=== PATIENT | male | born 1960 | race Caucasian/White ===

== ENCOUNTER 2020-08-14 18:54 | Observation (INO) ==
[2020-08-14] MEDS ORDERED: Albuterol 2.5 MG/3 ML NEBULIZER IH ONE (20:13)
[2020-08-14 20:53] LABS: Basophils # 0.1 K/mcL (0.0-0.2); Basophils % 0.6 %; Eosinophils # 0.3 K/mcL (0.0-0.6); Eosinophils % 2.1 %; Hematocrit 47.7 % (37.5-50.1); Hemoglobin 14.9 g/dL (12.9-16.9); Immature Granulocytes % 0.6 % (0-4); Lymphocytes # 2.5 K/mcL (0.6-4.6); Lymphocytes % 17.8 %; Mean Corpuscular HGB Conc 31.2 g/dL (31.6-35.5); Mean Corpuscular Hemoglobin 28.5 pg (28.0-33.3); Mean Corpuscular Volume 91.4 fL (83.0-100.0); Mean Platelet Volume 10.4 fL (9.4-12.4); Monocytes # 1.3 K/mcL (0.0-1.3); Monocytes % 9.3 %; Neutrophils # 9.9 K/mcL (1.6-8.9); Platelet Count 217 K/mcL (140-400); Red Blood Count 5.22 M/mcL (4.19-5.50); Red Cell Distribution Width 13.3 % (11.5-14.5); Segmented Neutrophils % 69.6 %; White Blood Count 14.2 K/mcL (4.3-11.1)
[2020-08-14 21:16] LABS: BUN/Creatinine Ratio 10 (6-26); Blood Urea Nitrogen 11 mg/dL (8-23); Calcium 8.9 mg/dL (8.6-10.3); Carbon Dioxide 26 mEq/L (23-29); Chloride 103 mEq/L (98-107); Glucose 113 mg/dL (70-105); Osmolality,Calculated 284 (280-300); Potassium 3.8 mEq/L (3.5-5.1); Sodium 137 mEq/L (136-145); eGFR For African Americans > 60 (> 60); eGFR For Non-African Americans > 60 (> 60)
[2020-08-14] MEDS ORDERED: levoFLOXacin 500 MG/100 ML 500 MG/100 ML BAG IVPB ONE (21:39)
[2020-08-14] MEDS ORDERED: Acetaminophen 325 MG TABLET PO PRN (22:39)
[2020-08-14] MEDS ORDERED: Ondansetron 4 MG/2 ML VIAL IVP PRN (22:39)
[2020-08-14] MEDS ORDERED: Naloxone 0.4 MG/ML INJ IVP PRN (22:39)
[2020-08-15] MEDS: Albuterol 2.5 MG/3 ML NEBULIZER IH PRN ×3 (06:27→21:51)
[2020-08-15] MEDS ORDERED: Dextrose Gel 15 GM/37.5 ML TUBE PO PRN ×2 (06:54)
[2020-08-15] MEDS ORDERED: *HR* Dextrose 50 % in Water (Vial) 50 ML VIAL IVP PRN (06:54)
[2020-08-15] MEDS ORDERED: D5% in Water 1,000 ML IVC PRN (06:54)
[2020-08-15 06:55] LABS: Hematocrit 48.2 % (37.5-50.1); Hemoglobin 15.2 g/dL (12.9-16.9); Mean Corpuscular HGB Conc 31.5 g/dL (31.6-35.5); Mean Corpuscular Hemoglobin 28.8 pg (28.0-33.3); Mean Corpuscular Volume 91.5 fL (83.0-100.0); Mean Platelet Volume 10.5 fL (9.4-12.4); Platelet Count 223 K/mcL (140-400); Red Blood Count 5.27 M/mcL (4.19-5.50); Red Cell Distribution Width 13.5 % (11.5-14.5); White Blood Count 11.6 K/mcL (4.3-11.1)
[2020-08-15 07:33] LABS: BUN/Creatinine Ratio 16 (6-26); Blood Urea Nitrogen 18 mg/dL (8-23); Calcium 8.7 mg/dL (8.6-10.3); Carbon Dioxide 24 mEq/L (23-29); Chloride 103 mEq/L (98-107); Glucose 136 mg/dL (70-105); Magnesium 1.9 mg/dL (1.6-2.6); Osmolality,Calculated 286 (280-300); Phosphorous 4.4 mg/dL (2.7-4.5); Potassium 4.1 mEq/L (3.5-5.1); Sodium 136 mEq/L (136-145); eGFR For African Americans > 60 (> 60); eGFR For Non-African Americans > 60 (> 60)
[2020-08-15] MEDS: Insulin LISPRO 300 UNITS/3 ML VIAL SQ SCH ×4 (08:58→20:56)
[2020-08-15] MEDS ORDERED: Vancomycin 2,000 MG/520 ML IV.SOLN IVPB ONE (10:00)
[2020-08-15] MEDS: Cefepime HCl 2,000 MG in Water for inj. (sterile) 20 ML IVP SCH ×2 (11:31→21:09)
[2020-08-15] MEDS: *HR* Heparin 5,000 UNIT/ML VIAL SQ SCH (18:06)
[2020-08-15] MEDS: Vancomycin 1,500 MG/265 ML IV.SOLN IVPB SCH (23:56)
[2020-08-16] MEDS: *HR* Heparin 5,000 UNIT/ML VIAL SQ SCH ×2 (05:03→16:03)
[2020-08-16 06:01] LABS: Hematocrit 46.7 % (37.5-50.1); Hemoglobin 14.4 g/dL (12.9-16.9); Mean Corpuscular HGB Conc 30.8 g/dL (31.6-35.5); Mean Corpuscular Hemoglobin 28.5 pg (28.0-33.3); Mean Corpuscular Volume 92.3 fL (83.0-100.0); Mean Platelet Volume 10.3 fL (9.4-12.4); Platelet Count 214 K/mcL (140-400); Red Blood Count 5.06 M/mcL (4.19-5.50); Red Cell Distribution Width 13.3 % (11.5-14.5); White Blood Count 9.1 K/mcL (4.3-11.1)
[2020-08-16] MEDS: Insulin LISPRO 300 UNITS/3 ML VIAL SQ SCH ×4 (07:30→21:52)
[2020-08-16] MEDS ORDERED: Fluticasone Propionate Nasal 50 MCG/SPRAY BOTTLE NS PRN (09:10)
[2020-08-16] MEDS: Cefepime HCl 2,000 MG in Water for inj. (sterile) 20 ML IVP SCH (10:24)
[2020-08-16] MEDS: FLUoxetine 20 MG CAPSULE PO SCH (10:24)
[2020-08-16] MEDS: Cholecalciferol (D-3) 1,000 UNIT (25MCG) TABLET PO SCH (10:25)
[2020-08-16] MEDS: lisinopriL 20 MG TABLET PO SCH (10:25)
[2020-08-16] MEDS: Aspirin Enteric Coated 81 MG Tablet PO SCH (10:25)
[2020-08-16] MEDS: Furosemide 40 MG TABLET PO SCH (10:25)
[2020-08-16] MEDS: carvediloL 6.25 MG TABLET PO SCH ×2 (10:25→16:03)
[2020-08-16] MEDS: Ipratropium/Albuterol Neb 3 ML IH SCH ×4 (11:15→23:35)
[2020-08-16] MEDS: Budesonide/Formoterol 160/4.5 1 PUFF INH IH SCH ×2 (11:15→20:02)
[2020-08-16] MEDS: Vancomycin 1,500 MG/265 ML IV.SOLN IVPB SCH ×2 (16:04→22:46)
[2020-08-16] MEDS ORDERED: carvediloL 6.25 MG TABLET PO SCH (17:00)
[2020-08-16] MEDS: GuaiFENesin Liq 200 MG/10 ML UDC PO SCH (22:46)
[2020-08-17] MEDS: Ipratropium/Albuterol Neb 3 ML IH SCH ×3 (03:41→11:12)
[2020-08-17 05:35] LABS: Hematocrit 45.1 % (37.5-50.1); Hemoglobin 13.6 g/dL (12.9-16.9); Mean Corpuscular HGB Conc 30.2 g/dL (31.6-35.5); Mean Corpuscular Hemoglobin 27.7 pg (28.0-33.3); Mean Corpuscular Volume 91.9 fL (83.0-100.0); Mean Platelet Volume 10.4 fL (9.4-12.4); Platelet Count 213 K/mcL (140-400); Red Blood Count 4.91 M/mcL (4.19-5.50); Red Cell Distribution Width 13.2 % (11.5-14.5); White Blood Count 8.3 K/mcL (4.3-11.1)
[2020-08-17 05:47] LABS: BUN/Creatinine Ratio 19 (6-26); Blood Urea Nitrogen 14 mg/dL (8-23); Calcium 8.8 mg/dL (8.6-10.3); Carbon Dioxide 27 mEq/L (23-29); Chloride 102 mEq/L (98-107); Glucose 104 mg/dL (70-105); Osmolality,Calculated 283 (280-300); Potassium 4.1 mEq/L (3.5-5.1); Sodium 136 mEq/L (136-145); eGFR For African Americans > 60 (> 60); eGFR For Non-African Americans > 60 (> 60)
[2020-08-17] MEDS: *HR* Heparin 5,000 UNIT/ML VIAL SQ SCH (06:19)
[2020-08-17] MEDS ORDERED: Levothyroxine 25 MCG TABLET PO SCH (06:30)
[2020-08-17 07:01] VITALS: BP 122/70
[2020-08-17] MEDS: Budesonide/Formoterol 160/4.5 1 PUFF INH IH SCH (07:28)
[2020-08-17] MEDS: Insulin LISPRO 300 UNITS/3 ML VIAL SQ SCH ×2 (07:46→12:14)
[2020-08-17] MEDS: Aspirin Enteric Coated 81 MG Tablet PO SCH (08:29)
[2020-08-17] MEDS: FLUoxetine 20 MG CAPSULE PO SCH (08:29)
[2020-08-17] MEDS: Cholecalciferol (D-3) 1,000 UNIT (25MCG) TABLET PO SCH (08:29)
[2020-08-17] MEDS: GuaiFENesin Liq 200 MG/10 ML UDC PO SCH (08:30)
[2020-08-17] MEDS: Furosemide 40 MG TABLET PO SCH (08:30)
[2020-08-17] MEDS: lisinopriL 20 MG TABLET PO SCH (08:30)
[2020-08-17] MEDS: carvediloL 6.25 MG TABLET PO SCH (08:30)
[2020-08-17] MEDS ORDERED: lisinopriL 20 MG TABLET PO SCH (09:00)
[2020-08-17] MEDS ORDERED: Furosemide 40 MG TABLET PO SCH (09:00)
[2020-08-17] MEDS ORDERED: Aspirin Enteric Coated 81 MG Tablet PO SCH (09:00)
[2020-08-17] MEDS ORDERED: Cholecalciferol (D-3) 1,000 UNIT (25MCG) TABLET PO SCH (09:00)
[2020-08-17] MEDS ORDERED: FLUoxetine 20 MG CAPSULE PO SCH (09:00)
[2020-08-17] MEDS: Vancomycin 1,500 MG/265 ML IV.SOLN IVPB SCH (11:52)
== END 2020-08-17 13:14 | disposition home or self-care (01) ==
LOC: 3BNU 18:54 → EMEROOARM 18:54 → 3BNU 22:24
PROVIDERS: ADMIT Family Medicine; ATTEND Family Medicine